=== PATIENT | female | born 1990 | race Caucasian/White ===

== ENCOUNTER 2019-02-26 23:10 | Inpatient (IN) ==
[2019-02-26 21:51] LABS: Amphetamine Screen,Urine Negative ng/mL (Cutoff=1000); Barbiturate Screen,Urine Positive ng/mL (Cutoff=200); Benzodiazepines Screen,Urine Negative ng/mL (Cutoff=200); Cannabinoid Screen,Urine Negative ng/mL (Cutoff = 50); Cocaine Screen,Urine Negative ng/mL (Cutoff= 300); Opiate Screen,Urine Negative ng/mL (Cutoff=300); Phencyclidine Screen,Urine Negative ng/mL (Cutoff=25)
--- NOTE | 2019-02-26 22:51 | Anesthesia Evaluation PreOp ---
Date of Encounter: 02/26/19 Time of Encounter: 22:50 - Past History Planned Operation: ARMIN Cardiac History: Denies any Significant Hx Pulmonary History: Denies Any Significant HX HOMEMAKER COMPANION History: Denies Any Significant HX Other Medical History: Other (Gestational Diabetes, diet controlled) Anesthesia History: No Prior Anesthetic Complications, Past Anesthesia ([place] teeth extraction.) : Yes Alcohol Use: none Drug use: none Medications and Allergies Folic Acid 1 tab PO DAILY 09/14/18 [History] One Daily Tablet 1 tab PO DAILY 09/14/18 [History] Tylenol 09/14/18 [History] Allergy/AdvReac Type Severity Reaction Status Date / Time No Known Allergies Allergy Verified 09/14/18 10:15 - Meds/Allergy Pre-op Review Medications Reviewed: Yes Allergies Reviewed: Yes Beta Blockers on Current Med List: No Anesthesia Exam Vital Signs Temperature 97.5 F L 02/26/19 20:10 Pulse Rate 88 02/26/19 20:10 Respiratory Rate 15 02/26/19 20:10 Blood Pressure 133/88 02/26/19 20:10 Temperature 97.5 F L 02/26/19 20:10 Pulse Rate 88 02/26/19 20:10 Respiratory Rate 02/26/19 20:10 Blood Pressure 133/88 02/26/19 20:10 Height: 5'5" Weight: 97.5kg NPO (# of Hours): 4 Pain Scale: 1 Pain Scale Used: Numeric (1 - 10) - HEENT Pupil (Motor): Pupils equal Mallampati: II Teeth: Normal Oral Opening: Greater than 3 - HOMEMAKER COMPANION LOC: Oriented HOMEMAKER COMPANION Motor: Normal RUE, Normal LUE, Normal RLE, Normal LLE, Normal Face HOMEMAKER COMPANION Sensory: Normal: RUE, LUE, RLE, LLE, Face - Cardiac Rhythm: Regular Murmur: None JVD: No Carotid Bruit: No - Pulmonary Breath Sounds: bilateral Clear Respiratory Effort: Symmetrical Anesthesia Assess/Plan ASA Score: 2 Level of consciousness: Cooperative Anesthetic Plan: Epidural Autologous Blood: No Monitoring Plan: Standard Monitors Recovery Plan: Other
[~2019-02-26 23:10] MED LIST: *HR* Nalbuphine 10 MG/ML AMPUL IVP PRN; Acetaminophen 325 MG TABLET PO ONE; Famotidine 20 MG/2 ML VIAL IVP PRN; Metoclopramide 10 MG/2 ML VIAL IVP PRN; Naloxone 0.4 MG/ML INJ IVP PRN; Ondansetron 4 MG/2 ML VIAL IVP PRN
--- NOTE | 2019-02-26 23:12 | OB/GYN History & Physical ---
Date of Encounter: 02/26/19 Time of Encounter: 23:04 Assessment and Plan (1) 40 weeks gestation of Current visit: Yes Status: Acute admitted for delivery POC discussed with Dr. Angelo (2) Gestational diabetes, diet controlled Current visit: Yes Status: Acute Glucose with admission labs Qualifiers: Trimester: third trimester Qualified Code(s): O24.410 - Gestational diabetes mellitus in , diet controlled History of Present Illness Chief complaint: Contractions, postdates, GDM HPI: Ms. Funes is a 28 year old female @ 40w4d presents to labor and delivery with complaints of contractions that started earlier today. Patient reports in the past few hours the contractions have gotten stronger. Patient denies LOF or VB. Patient reports good movement. Patient reports she would prefer to stay for induction if no cervical change but would like the option to be as natural as possible at this time. Dyson score of 10 discussed with patient. Induction consent signed. Dr. Angelo agrees with IOL for post dates and GDM- diet controlled. Patient reports BS run between 80-120. Patient received care with Dr. De La Torre. Blood type: O Positive Rubella: Immune Hep B: Nonreactive GBS: Negative Past Med Surg Social Fam HX - Past Medical History Source: patient Medical history: migraine Psychiatric history: no psych history - Past Surgical History Additional surgical history: wisdom teeth - Social History Smoking Status: Never smoker Smokeless Tobacco Status: No Alcohol use: none Drug use: none Current living situation: Home - Independent Activity Level: Independent ambulation Recent Out of Country Travel Within the Last 8 Weeks: No Exposure or Possible Exposure to Illness During Travel: No - Family History Mother Age: 56 Living Status: Still Living Hx Family Cardiac Disorders: No Hx Family Respiratory Disorders: No Hx Family Cancer: No Hx Family GI Disorders: No Hx Family Genitourinary Disorders: No Hx Family Endocrine Disorder: Yes (diabetic) Hx Family Musculoskeletal Disorders: No Hx Family Neuromuscular Disorders: No Hx Family Neurologic Disorders: No Hx Family HEENT Disorders: No Hx Family Autoimmune Disorders: No Hx Family Reproductive Disorders: No Hx Family Psychosocial Disorders: No Hx Family Medical Disorders: No Obstetrical History - Pregnancies : 1 Para: 0 Term: 0 : 0 Ab's: 0 Livin Medications and Allergies Folic Acid 1 tab PO DAILY 09/14/18 [History] One Daily Tablet 1 tab PO DAILY 09/14/18 [History] Tylenol 09/14/18 [History] Allergy/AdvReac Type Severity Reaction Status Date / Time No Known Allergies Allergy Verified 09/14/18 10:15 Review of System OB - Constitutional Constitutional ROS IM: no chills, no fever(s), no headache(s) - Cardiovascular Cardiovascular: no edema, no palpitations, no syncope - Respiratory Respiratory: no dyspnea - Gastrointestinal Gastrointestinal: no constipation, no diarrhea, no heartburn, no nausea, no vomiting - Genitourinary Genitourinary: no abnormal vaginal bleeding, no dysuria, no flank pain, no urinary frequency, no urinary hesitancy, no vaginal discharge, no vaginal odor, no vaginal pruritis Exam - Vital Signs Vital signs: Initial Vital Signs Temp Pulse Resp BP 97.5 F L 88 15 133/88 02/26/19 20:10 02/26/19 20:10 02/26/19 20:10 02/26/19 20:10 - Constitutional Constitutional: well developed, well nourished, no acute distress, average body habitus - HEENT HEENT: Normocephaly, Mucus Membranes Moist - Neck Neck exam: full ROM, supple - Lungs Respiratory exam: CTAB - Cardiovascular Cardiovascular exam: RRR, +S1, +S2 - Abdomen Abdomen: Present: bowel sounds normal, gravid, non tender - Extremities Extremities exam: full ROM, normal capillary refill, normal inspection Deep Tendon Reflex Grade: 2+ Normal - Cervix Dilation: 1 (per RN) Effacement: 80 Station: -1 - Uterus Uterus exam: Present: normal size, normal contour - Anus/Rectum Anus/Rectum: Present: normal perianal skin - Comments Comments: FHR 125 bpm moderate variability +15x15 accels no decels noted. Contractions 2-4 min apart. Cat. 1 tracing Results Abnormal lab results Ur Barbiturates Screen Positive ng/mL (Ywtdil=011) H 02/26/19 21:16 All other labs normal. - VTE Reasons for not Prescribing Prophylaxis: Treatment not Indicated - Low risk for VTE
[2019-02-26 23:46] LABS: Basophils # 0.1 K/mcL (0.0-0.2); Basophils % 0.3 %; Eosinophils % 0.2 %; Hematocrit 38.9 % (35.3-44.9); Hemoglobin 13.1 g/dL (11.5-15.4); Immature Granulocytes % 0.5 % (0-4); Lymphocytes # 2.4 K/mcL (0.6-4.6); Lymphocytes % 16.2 %; Mean Corpuscular HGB Conc 33.7 g/dL (31.6-35.5); Mean Corpuscular Hemoglobin 31.2 pg (28.0-33.3); Mean Corpuscular Volume 92.6 fL (83.0-100.0); Mean Platelet Volume 9.4 fL (9.4-12.4); Monocytes % 6.9 %; Neutrophils # 11.2 K/mcL (1.6-8.9); Platelet Count 276 K/mcL (140-400); Red Cell Distribution Width 12.7 % (11.5-14.5); Segmented Neutrophils % 75.9 %
[2019-02-27] MEDS ORDERED: Ringers Solution, Lactated 1,000 ML ONE ×3 (01:28→10:33)
[2019-02-27 01:29] LABS: Alanine Aminotransferase 8 Units/L (7-52); Aspartate Amino Transferase 14 Units/L (13-39); BUN/Creatinine Ratio 23 (6-26); Blood Urea Nitrogen 9 mg/dL (6-20); Lactate Dehydrogenase 140 Units/L (140-271); Uric Acid 5.7 mg/dL (2.3-7.6); eGFR For Non-African Americans > 60 (> 60)
--- NOTE | 2019-02-27 01:31 | OB Labor Progress Note ---
Date of Encounter: 02/27/19 Time of Encounter: 01:29 Labor Progress Note - Subjective Subjective: Patient breathing through the contractions. Patient considering pain medication at this time. - Cervix Cervix: 3/100/-1 - Heart Tones Heart Tones: 135 bpm moderate variability +15x15 accels no decels noted. Cat. 1 tracing. - [place] Old [place]: 1.5-4 min apart - Interventions Interventions: SVE - Plan Physician notified: No Plan: Continue labor management Nubain or epidural when patient desires
[2019-02-27] MEDS ORDERED: Epidural Premix (fent/bupiv) 110 ML EP ONE (05:07)
[2019-02-27] MEDS ORDERED: Ondansetron 4 MG/2 ML VIAL IVP PRN (05:09)
[2019-02-27] MEDS ORDERED: Naloxone 0.4 MG/ML INJ IVP PRN (05:09)
[2019-02-27] MEDS ORDERED: *HR* FentaNYL (PF) 100 MCG/2 ML VIAL EP ONE (05:09)
[2019-02-27] MEDS ORDERED: *HR* Ropivacaine/PF 0.2% 20 ML VIAL EP ONE (05:09)
[2019-02-27] MEDS ORDERED: EPHEDrine 50 MG/ML VIAL IVP PRN (05:09)
[2019-02-27] MEDS ORDERED: Epidural Premix (fent/bupiv) 110 ML EP SCH (05:15)
[2019-02-27] MEDS ORDERED: *HR* FentaNYL (PF) 100 MCG/2 ML VIAL ONE (05:16)
--- NOTE | 2019-02-27 05:53 | Anesthesia Procedures ---
Date of Encounter: 02/27/19 Time of Encounter: 05:18 Procedures: Anesthesia - Epidural/Spinal Patient ID/Chart reviewed: Yes Patient examined: Yes OB Eval: Gestational age: 40 OB Eval: : 1 OB Eval: Hx Para: 0 OB Eval: Dilated at (cm): 6 OB Eval: Contractions: Non-stressed pattern Consent Obtained: Yes Supplemental Oxygen: None/Room Air Site Prep: Aseptic Technique, Sterile prep and drape, Povidone-Iodine 1% Patient position: upright Local Anesthetic: Lidocaine 1% Amount of Local Anesthetic used: 3 Touhy Needle Gauge: 18 Touhy Needle Depth (cm): 6 Catheter Depth at Skin (cm): 11 Test Dose (1.5% Lido + Epi): Volume given (mls): 3 Test Dose Result: Negative Loading Dose: Fentanyl (mcg): 100 Loading Dose: Other: Ropivicaine 0.2% 5ml NS 3ml Loading Dose Administered: Thru Touhy Needle Infusion Med: 0.125% Bupivacaine w/ 2 mcg/ml Fentanyl Infusion Rate (mls/hr): [address]: Tegaderm, Tape Interspace Used: L3-L4 Loss of Resistance (YAMIL): Yes Blood: No CSF: No Paresthesia: No Procedure: ARMIN placed 1st pass in upright position. YAMIL achieved with normal saline. Intentional dural puncture with Sprotte 25g spinal needle with positive CSF. Catheter threaded with ease. VSS throughout. Pt stated comfort following bolus administration. Vitals + FHT's: 0518 BP 144/96 P 97 R 22 0545 BP 125/65 P 105 R 16 FHT 130s
[2019-02-27 06:19] LABS: Creatinine,Urine 165 mg/dL; Protein/Creatinine Ratio,Urine 0.16 mg/mg (0.00-0.20)
[2019-02-27] MEDS ORDERED: miSOPROStol 100 MCG TABLET PO ONE (07:23)
[2019-02-27] MEDS ORDERED: Oxytocin 20 units/ LR 1000 mL 20 UNIT/1,000 ML BAG IVC SCH ×2 (07:45→13:51)
--- NOTE | 2019-02-27 11:47 | OB/GYN Procedure Note ---
Delivery - Delivery Date: 02/27/19 Provider: Sanford De La Torre Intrapartum events: none Delivery induction: none Delivery augmentation: pitocin Delivery monitor: external FHT, external uterine Anesthesia: epidural Quantitated Blood Loss: 300 - (s) Infant A Delivery Date: 02/27/19 Infant Delivery Time: 19 Presentation: vertex Position: OA Route of delivery: Gender: Female Viability: Viable at 1 minute: 9 at 5 mins: 9 Shoulder Dystocia: not encountered Specimens collected: cord blood Placenta: spontaneous Cord: 3 umbilical vessels - Complications Delivery comments: Patient progressed to complete and pushing. She had a spontaneous vaginal delivery of a female over an intact perineum. Infant's head was in the perineum easily. The rest the was then delivered without difficulty. cried immediately upon delivery. Infant was passed to nursing in attendance. Cord blood was obtained after the cord was clamped and cut. Infant was crying immediately upon delivery. Placenta was delivered spontaneously intact. There are no cervical, or perineal lacerations noted. There were bilateral periurethral lacerations and a vaginal laceration. Vaginal laceration was repaired with 0 Vicryl suture in usual fashion. The sidewall lacerations were not bleeding. Patient delivered a female weight is pending his mother skin the skin Apgars are 9 at 1 minute 9 at 5 minutes. Blood loss is 300 mL. Patient was given 400 g of Cytotec rectally postdelivery. - Disposition Mom disposition: stable in LDR disposition: stable in LDR
[2019-02-27] MEDS ORDERED: Measles/Mumps/Rubella Vacc 0.5 ML VIAL SQ PRN (13:51)
[2019-02-27] MEDS: Acetaminophen 325 MG TABLET PO PRN (17:27)
[2019-02-27] MEDS: Ibuprofen 600 MG TABLET PO PRN (21:42)
[2019-02-28] MEDS: Acetaminophen 325 MG TABLET PO PRN (01:40)
[2019-02-28 05:14] LABS: Basophils % 0.3 %; Eosinophils # 0.1 K/mcL (0.0-0.6); Eosinophils % 0.5 %; Hematocrit 28.2 % (35.3-44.9); Immature Granulocytes % 0.8 % (0-4); Lymphocytes # 2.8 K/mcL (0.6-4.6); Lymphocytes % 18.6 %; Mean Corpuscular Hemoglobin 31.3 pg (28.0-33.3); Mean Corpuscular Volume 94.9 fL (83.0-100.0); Mean Platelet Volume 9.4 fL (9.4-12.4); Monocytes # 1.2 K/mcL (0.0-1.3); Monocytes % 7.7 %; Neutrophils # 10.7 K/mcL (1.6-8.9); Platelet Count 211 K/mcL (140-400); Red Blood Count 2.97 M/mcL (3.82-4.97); Red Cell Distribution Width 12.9 % (11.5-14.5); Segmented Neutrophils % 72.1 %
[2019-02-28] MEDS: Ibuprofen 600 MG TABLET PO PRN ×2 (05:47→13:37)
[2019-02-28 05:53] LABS: Hemoglobin 9.3 g/dL (11.5-15.4)
[2019-02-28 08:40] VITALS: BP 108/66
[2019-02-28] MEDS ORDERED: Prenatal Vit/FA 1 EACH TABLET PO SCH (09:00)
--- NOTE | 2019-02-28 11:25 | Discharge Summary ---
Date of Encounter: 02/28/19 Time of Encounter: 11:23 - Discharge Diagnosis (1) Vaginal delivery Priority: Primary Status: Acute Comments: Stable PPD#1, pain well managed on po pain medication, breast feeding, tolerates diet, bleeding minimal, desires discharge - Discharge Medications Prescriptions: New Ferrous Sulfate 325 mg PO DAILY #30 tablet Acetaminophen [Tylenol] 650 mg PO Q6HR PRN tablet PRN Reason: Mild Pain Ibuprofen [Motrin] 600 mg PO Q6H PRN #60 tablet PRN Reason: Breakthrough Pain Docusate [Colace] 100 mg PO BID #30 capsule Continued Tylenol One Daily Tablet 1 tab PO DAILY Folic Acid 1 tab PO DAILY Home Medications: Folic Acid 1 tab PO DAILY 09/14/18 [History] One Daily Tablet 1 tab PO DAILY 09/14/18 [History] Tylenol 09/14/18 [History] Acetaminophen [Tylenol] 650 mg PO Q6HR PRN tablet 02/28/19 [Rx] Docusate [Colace] 100 mg PO BID #30 capsule 02/28/19 [Rx] Ferrous Sulfate 325 mg PO DAILY #30 tablet 02/28/19 [Rx] Ibuprofen [Motrin] 600 mg PO Q6H PRN #60 tablet 02/28/19 [Rx] Allergies/Adverse Reactions: Allergy/AdvReac Type Severity Reaction Status Date / Time No Known Allergies Allergy Verified 09/14/18 10:15 Data Procedures and tests throughout hospitalization: Laboratory Tests 02/26/19 02/26/19 02/26/19 21:16 23:01 23:25 WBC 14.7 H RBC 4.20 Hgb 13.1 Hct 38.9 MCV 92.6 MCH 31.2 MCHC 33.7 RDW 12.7 Plt Count 276 MPV 9.4 Immature Gran % 0.5 Seg Neutrophils % 75.9 Lymphocytes % 16.2 Monocytes % 6.9 Eosinophils % 0.2 Basophils % 0.3 Neutrophils # 11.2 H Lymphocytes # 2.4 Monocytes # 1.0 Eosinophils # 0.0 Basophils # 0.1 BUN Creatinine Est GFR ( Amer) Est GFR (Non-Af Amer) BUN/Creatinine Ratio Glucose 80 Uric Acid AST ALT Lactate Dehydrogenase Urine Creatinine 165 Protein/Creatinin Ratio 0.16 Urine Total Protein 26 H Urine Opiates Screen Negative Ur Barbiturates Screen Positive H Ur Phencyclidine Scrn Negative Ur Amphetamines Screen Negative U Benzodiazepines Scrn Negative Urine Cocaine Screen Negative U Marijuana (THC) Screen Negative Ur Drug Screen Interp See Below 02/26/19 02/28/19 23:25 04:15 WBC 14.9 H RBC 2.97 L Hgb 9.3 L D Hct 28.2 L MCV 94.9 MCH 31.3 MCHC 33.0 RDW 12.9 Plt Count 211 MPV 9.4 Immature Gran % 0.8 Seg Neutrophils % 72.1 Lymphocytes % 18.6 Monocytes % 7.7 Eosinophils % 0.5 Basophils % 0.3 Neutrophils # 10.7 H Lymphocytes # 2.8 Monocytes # 1.2 Eosinophils # 0.1 Basophils # 0.0 BUN 9 Creatinine 0.39 L Est GFR ( Amer) > 60 Est GFR (Non-Af Amer) > 60 BUN/Creatinine Ratio 23 Glucose Uric Acid 5.7 AST 14 ALT 8 Lactate Dehydrogenase 140 Urine Creatinine Protein/Creatinin Ratio Urine Total Protein Urine Opiates Screen Ur Barbiturates Screen Ur Phencyclidine Scrn Ur Amphetamines Screen U Benzodiazepines Scrn Urine Cocaine Screen U Marijuana (THC) Screen Ur Drug Screen Interp Labs on day of discharge: Labs from last 24 hours 02/28/19 04:15 WBC 14.9 H RBC 2.97 L Hgb 9.3 L D Hct 28.2 L MCV 94.9 MCH 31.3 MCHC 33.0 RDW 12.9 Plt Count 211 MPV 9.4 Immature Gran % 0.8 Seg Neutrophils % 72.1 Lymphocytes % 18.6 Monocytes % 7.7 Eosinophils % 0.5 Basophils % 0.3 Neutrophils # 10.7 H Lymphocytes # 2.8 Monocytes # 1.2 Eosinophils # 0.1 Basophils # 0.0 Date of admission: 02/26/19 23:10 Primary care physician: PCP NONE Consults: 02/27/19 13:51 Consult to Data Center Technician [CONS] Routine Comment: Vaginal delivery, consult needed Discharging clinician: Nadiya Molina Anticipated date of discharge: 02/28/19 - Patient Status Disposition: Home, Self-Care Condition: Good Overall status at discharge: patient is progressing back to baseline - Discharge Instructions Follow Up With: NONE,PCP [Primary Care Provider] - Sanford De La Torre MD [Partnered Physician] - - Diet and Activity Activity: resume usual activities as tolerated Diet: regular diet Hospital Course Reason for admission: IUP at term Delivery: Episiotomy: none Laceration: other complications: none Discharge diagnosis: IUP at term delivered baby: female Hospital course: Delivery - Delivery Date: 02/27/19 Provider: Sanford De La Torre Intrapartum events: none Delivery induction: none Delivery augmentation: pitocin Delivery monitor: external FHT, external uterine Anesthesia: epidural Quantitated Blood Loss: 300 - (s) A Infant Delivery Date: 02/27/19 Infant Delivery Time: Presentation: vertex Position: OA Route of delivery: Gender: Female Viability: Viable at 1 minute: 9 at 5 mins: 9 Shoulder Dystocia: not encountered Specimens collected: cord blood Placenta: spontaneous Cord: 3 umbilical vessels - Complications Delivery comments: Patient progressed to complete and pushing. She had a spontaneous vaginal delivery of a female over an intact perineum. 's head was in the perineum easily. The rest the infant was then delivered without difficulty. Infant cried immediately upon delivery. was passed to nursing in attendance. Cord blood was obtained after the cord was clamped and cut. Infant was crying immediately upon delivery. Placenta was delivered spontaneously intact. There are no cervical, or perineal lacerations noted. There were bilat eral periurethral lacerations and a vaginal laceration. Vaginal laceration was repaired with 0 Vicryl suture in usual fashion. The sidewall lacerations were not bleeding. Patient delivered a female weight is pending his mother skin the skin Apgars are 9 at 1 minute 9 at 5 minutes. Blood loss is 300 mL. Patient was given 400 g of Cytotec rectally postdelivery. - Disposition Mom disposition: stable in PP and appropriate for discharge Time Attestation: Total time spent providing and/or coordinating discharge services: Time Spent: Less than 30 minutes Exam - Constitutional Vitals: Temp Pulse Resp BP Pulse Ox 98 F 90 12 108/66 97 02/28/19 07:55 02/28/19 07:55 02/28/19 07:55 02/28/19 07:55 02/28/19 07:55 General appearance IM: A&O X 3 - Respiratory Respiratory exam: Present: CTAB - Cardiovascular Cardiovascular exam IM: Present: RRR - GI/Abdominal GI/Abdominal exam IM: soft - Uterine Tone: Firm Uterus Position: At Umbilicus - Neurological Exam Neurological exam: normal gait, oriented X3 - Psychiatric Additional comments: reports good mood
== END 2019-02-28 14:55 | disposition home or self-care (01) | DRG 806 ==
LOC: 1NENULAB → 1NENUOBS 02-27 13:51
PROVIDERS: ADMIT Advanced Practice Midwife; ATTEND Advanced Practice Midwife

== ENCOUNTER → 2019-03-02 12:00 | Observation (INO) | END | disposition home or self-care (01) | LOC: 1NENUOBS | PROVIDERS: ADMIT Obstetrics & Gynecology; ATTEND Obstetrics & Gynecology ==

== ENCOUNTER → 2022-02-26 18:53 | Observation (INO) ==
[~2022-02-26 18:53] MED LIST changes: -*HR* Nalbuphine 10 MG/ML AMPUL IVP PRN; -Acetaminophen 325 MG TABLET PO ONE; -Famotidine 20 MG/2 ML VIAL IVP PRN; -Metoclopramide 10 MG/2 ML VIAL IVP PRN; -Naloxone 0.4 MG/ML INJ IVP PRN; -Ondansetron 4 MG/2 ML VIAL IVP PRN; +Ringers Solution, Lactated 1,000 ML IVC ONE
== END | disposition home or self-care (01) ==
LOC: 1NENULAB
PROVIDERS: ADMIT Advanced Practice Midwife; ATTEND Advanced Practice Midwife

== ENCOUNTER 2022-05-08 13:29 | Inpatient (IN) ==
[2022-05-08 11:18] LABS: Basophils % 0.3 %; Eosinophils % 0.2 %; Hemoglobin 11.1 g/dL (11.5-15.4); Immature Granulocytes % 0.5 % (0-4); Lymphocytes # 1.6 K/mcL (0.6-4.6); Lymphocytes % 14.2 %; Mean Corpuscular HGB Conc 32.6 g/dL (31.6-35.5); Mean Corpuscular Hemoglobin 29.1 pg (28.0-33.3); Mean Platelet Volume 9.5 fL (9.4-12.4); Monocytes # 0.6 K/mcL (0.0-1.3); Monocytes % 5.7 %; Neutrophils # 8.7 K/mcL (1.6-8.9); Platelet Count 283 K/mcL (140-400); Red Blood Count 3.82 M/mcL (3.82-4.97); Red Cell Distribution Width 14.1 % (11.5-14.5); Segmented Neutrophils % 79.1 %; White Blood Count 10.9 K/mcL (4.3-11.1)
[2022-05-08 12:37] LABS: Amphetamine Screen,Urine Negative ng/mL (Cutoff=1000); Barbiturate Screen,Urine Negative ng/mL (Cutoff=200); Benzodiazepines Screen,Urine Negative ng/mL (Cutoff=200); Cannabinoid Screen,Urine Negative ng/mL (Cutoff = 50); Cocaine Screen,Urine Negative ng/mL (Cutoff= 300); Opiate Screen,Urine Negative ng/mL (Cutoff=300); Phencyclidine Screen,Urine Negative ng/mL (Cutoff=25)
[~2022-05-08 13:29] MED LIST changes: +Azithromycin 500 MG in 0.9 % Sodium Chloride 250 ML IVPB PRN; +Famotidine 20 MG/2 ML VIAL IVP PRN; +Metoclopramide 10 MG/2 ML VIAL IVP PRN; +Naloxone 0.4 MG/ML INJ IVP PRN; +Ondansetron 4 MG/2 ML VIAL IVP PRN; -Ringers Solution, Lactated 1,000 ML IVC ONE
[2022-05-08] MEDS ORDERED: Ropivacaine/PF 0.2% 20 ML VIAL EP ONE (14:07)
[2022-05-08] MEDS ORDERED: EPHEDrine 50 MG/ML VIAL IVP PRN (14:07)
[2022-05-08] MEDS ORDERED: *HR* FentaNYL (PF) 100 MCG/2 ML VIAL EP ONE (14:07)
[2022-05-08] MEDS ORDERED: Epidural Premix (fent/bupiv) 110 ML EP SCH (14:15)
[2022-05-08] MEDS ORDERED: Ringers Solution, Lactated 1,000 ML ONE (17:52)
[2022-05-08] MEDS ORDERED: Ringers Solution, Lactated 1,000 ML IVC SCH (18:30)
[2022-05-08] MEDS: D5% in Lactated Ringers 1,000 ML IVC SCH ×2 (18:33→18:34)
[2022-05-08] MEDS ORDERED: Oxytocin 30 UNIT/503 ML BAG IVC ONE (22:21)
[2022-05-09] MEDS ORDERED: Benzocaine/Menthol 56 GM AEROSOL SPRAY TP PRN (02:42)
[2022-05-09] MEDS ORDERED: Oxytocin 30 UNIT/503 ML BAG IVC SCH (02:42)
[2022-05-09] MEDS ORDERED: Rho Immune Globulin 1,500 UNIT SYRINGE IM PRN (02:42)
[2022-05-09] MEDS ORDERED: *HR* Oxytocin 10 UNIT/ML VIAL IM ONE (02:42)
[2022-05-09] MEDS ORDERED: Ondansetron ODT 4 MG TAB.RAPDIS SL PRN (02:42)
[2022-05-09] MEDS ORDERED: Methylergonovine 0.2 MG/ML AMPUL IM ONE (02:42)
[2022-05-09] MEDS ORDERED: Lanolin 7 G OINT...G. TP PRN (02:42)
[2022-05-09 04:47] LABS: Basophils % 0.1 %; Eosinophils % 0.1 %; Hematocrit 27.4 % (35.3-44.9); Immature Granulocytes % 0.5 % (0-4); Lymphocytes % 12.4 %; Mean Corpuscular HGB Conc 33.2 g/dL (31.6-35.5); Mean Corpuscular Hemoglobin 29.4 pg (28.0-33.3); Mean Corpuscular Volume 88.7 fL (83.0-100.0); Mean Platelet Volume 9.5 fL (9.4-12.4); Monocytes # 0.9 K/mcL (0.0-1.3); Monocytes % 5.8 %; Neutrophils # 12.9 K/mcL (1.6-8.9); Platelet Count 220 K/mcL (140-400); Red Blood Count 3.09 M/mcL (3.82-4.97); Red Cell Distribution Width 13.8 % (11.5-14.5); Segmented Neutrophils % 81.1 %; White Blood Count 15.8 K/mcL (4.3-11.1)
[2022-05-09] MEDS: Ibuprofen 600 MG TABLET PO SCH ×3 (04:47→17:39)
[2022-05-09] MEDS: Acetaminophen 325 MG TABLET PO SCH ×4 (04:47→19:55)
[2022-05-09 04:48] LABS: Hemoglobin 9.1 g/dL (11.5-15.4)
[2022-05-09 07:18] VITALS: TEMP 98.2
[2022-05-09] MEDS: Prenatal Vit/FA 1 EACH TABLET PO SCH (08:35)
[2022-05-09] MEDS: miSOPROStoL 100 MCG TABLET PO SCH ×4 (08:35→19:55)
[2022-05-09 21:01] VITALS: O2SAT 98
[2022-05-10] MEDS: Ibuprofen 600 MG TABLET PO SCH ×2 (01:05→07:35)
[2022-05-10] MEDS: Prenatal Vit/FA 1 EACH TABLET PO SCH (07:34)
[2022-05-10] MEDS: miSOPROStoL 100 MCG TABLET PO SCH (07:35)
[2022-05-10 07:42] VITALS: BP 125/81; PULSE 86
[2022-05-10] MEDS: Acetaminophen 325 MG TABLET PO SCH (08:18)
== END 2022-05-10 10:30 | disposition home or self-care (01) | DRG 806 ==
LOC: 1NENULAB → 1NENUOBS 05-09 02:15
PROVIDERS: ADMIT Obstetrics & Gynecology; ATTEND Obstetrics & Gynecology